=== PATIENT | female | born 1990 | race Caucasian/White ===

== ENCOUNTER → 2017-06-15 | Outpatient (CLI) | payer OTHER ==
[~2017-06-15] MED LIST: ADV1DS IH; ANXIETY MED; BIRTH CONTROL; FAMO20TA5 PO; ONDA8TAB13 PO; SCR1T PO; TRAM50TA2 PO
--- NOTE | 2017-06-15 09:04 | Diagnostic Imaging Report ---
PROCEDURE: US Gallbladder. TECHNIQUE: Multiple real-time grayscale images were obtained over the right upper quadrant in various projections. INDICATION: Right upper quadrant pain. FINDINGS: Liver parenchyma is homogeneous with normal echotexture. Gallbladder is clear. Common duct is not dilated. Pancreas is obscured by bowel gas. Right kidney appears normal. There is no ascites. IMPRESSION: Negative gallbladder sonogram. Dictated by: Dictated on workstation # [id number]
== END ==
LOC: RAD 07:51
PROVIDERS: ATTEND Surgery
DX: R10.11 Right upper quadrant pain (principal); R10.9 Unspecified abdominal pain; R19.7 Diarrhea, unspecified
CPT/HCPCS: 76705

== ENCOUNTER → 2017-08-03 | Outpatient (CLI) | payer OTHER ==
[~2017-08-03] MED LIST changes: +CATHETER FLUSH 10 ML SYR IV PRN
--- NOTE | 2017-08-03 13:27 | Diagnostic Imaging Report ---
EXAMINATION: HIDA with EF measurements Indication: Abdominal pain TECHNIQUE: After the intravenous administration of 5 mCi of Tc 99m Choletec, imaging over the abdomen was obtained. This was followed by administration of Ensure orally to stimulate intrinsic CCK secretion, followed by continued imaging with ejection fraction measured. FINDINGS: There is homogeneous uptake in the liver with prompt bile duct and gallbladder filling seen. Bowel activity is seen at 20 minutes. Based on further imaging and gallbladder area of interest activity measurements after the administration of Ensure, the gallbladder ejection fraction is estimated at 46%. IMPRESSION: 1. Normal hepatobiliary uptake and Gallbladder filling. 2. Borderline gallbladder ejection fraction. Correlate clinically. Dictated by: Dictated on workstation # [id number]
--- NOTE | 2017-08-04 12:05 | Physician Query-Final Dx ---
MARCI GARCIA 08/04/17 1205: Clinic Account Progress/Dx Physician Query: Please speficy the location of the patients abd pain thank you Date of Service Aug 03, 2017 at 09:50 GOLDIE SEN DO 08/10/17 0924: Clinic Account Progress/Dx DIAGNOSIS: Diagnosis epigastric abdominal pain MARCI GARCIA Aug 04, 2017 12:05 GOLDIE SEN DO Aug 10, 2017 09:24
== END ==
LOC: CARD 09:50
PROVIDERS: ATTEND Surgery
DX: R10.13 Epigastric pain (principal)
CPT/HCPCS: 78227

== ENCOUNTER → 2018-08-25 | Outpatient (CLI) | payer BC, OTHER ==
[~2018-08-25] MED LIST changes: -CATHETER FLUSH 10 ML SYR IV PRN
--- NOTE | 2018-08-25 17:14 | Diagnostic Imaging Report ---
PROCEDURE: MRI right joint lower extremity without contrast. TECHNIQUE: Multiplanar, multisequence [id number] MRI of the right lower extremity was accomplished. INDICATION: Injury a few months ago with anterior and medial right knee pain, radiating up to thigh. COMPARISON: None. FINDINGS: No acute fracture or dislocation is seen in the right knee. There is mild bone marrow edema at the superomedial aspect of the patella. Some sequences demonstrate significant motion artifact. No significant joint effusion is seen. There is an articular cartilage defect overlying the median ridge of the superior patella. The articular cartilage in the medial and lateral compartments demonstrates no full-thickness defect. No discrete tear is seen of the medial or lateral menisci. The anterior and posterior cruciate ligaments are intact. The medial collateral ligament and the lateral collateral ligamentous complex are intact. The extensor mechanism is intact. The medial and lateral retinacula are intact. There is mild anterior subcutaneous edema and mild edema in Hoffa's fat pad. IMPRESSION: 1. Articular cartilage defect overlying the superior median ridge of the right patella with underlying bone marrow edema. 2. No discrete tear is seen of the menisci or ligaments in the right knee. Dictated by: Dictated on workstation # [id number]
== END ==
LOC: RAD 16:08
PROVIDERS: ATTEND Orthopaedic Surgery
DX: M23.611 Other spontaneous disruption of anterior cruciate ligament of right knee (principal)
CPT/HCPCS: 73721

== ENCOUNTER 2018-10-01 16:35 | Observation (INO) | payer BC ==
[~2018-10-01] VITALS: Ht 167.6 cm; Wt 137.9 kg
[2018-10-01] MEDS ORDERED: ALPRAZolam 0.25 MG (XANAX) TAB PO PRN (16:45)
[2018-10-01] MEDS ORDERED: ACETAMINOPHEN 500 MG TAB (TYLENOL) PO PRN (16:45)
[2018-10-01] MEDS ORDERED: fentaNYL INJECTION 100 MCG/2 ML AMP IVP PRN (16:45)
[2018-10-01] MEDS ORDERED: HYDROcodone/APAP 5 MG/325 MG (LORTAB) TAB PO PRN (16:45)
[2018-10-01] MEDS ORDERED: CALCIUM CARBONATE 500 MG (TUMS) TAB.CHEW PO PRN (16:45)
[2018-10-01] MEDS ORDERED: DOCUSATE SODIUM 100 MG (COLACE) CAP PO PRN (16:45)
[2018-10-01] MEDS ORDERED: ONDANSETRON 4 MG/2 ML (SDV) Z0FRAN IVP PRN (16:45)
[2018-10-01] MEDS ORDERED: ZOLPIDEM 5 MG (AMBIEN) TAB PO PRN (16:45)
[2018-10-01] MEDS ORDERED: methylPREDNISolone 125 MG (Solu-MEDROL) VIAL IVP NR (17:15)
[2018-10-01] MEDS ORDERED: cefTRIAXone FOR IV USE 1,000 MG in NS (IVPB) 50 ML IV NR (17:15)
[2018-10-01 17:20] VITALS: BP 165/74
[2018-10-01] MEDS ORDERED: CATHETER FLUSH 10 ML SYR IV PRN (17:30)
--- NOTE | 2018-10-01 17:57 | Diagnostic Imaging Report ---
INDICATION: Wheezing. EXAMINATION: Two views of the chest were obtained. FINDINGS: Lung volumes are symmetric and normal. No airway thickening. No infiltrate, failure, effusion or pneumothorax. IMPRESSION: Normal two-view chest. Dictated by: Dictated on workstation # [id number]
[2018-10-01 18:13] LABS: BASOPHILS % (AUTO) 0 % (0-10); EOSINOPHILS # (AUTO) 0.1 10^3/uL (0.0-0.3); EOSINOPHILS % (AUTO) 1 % (0-10); HEMATOCRIT 41 % (35-52); HEMOGLOBIN 13.8 G/DL (11.5-16.0); LYMPHOCYTES % (AUTO) 38 % (12-44); MEAN CORPUSCULAR HEMOGLOBIN 31 PG (25-34); MEAN CORPUSCULAR HGB CONC 34 G/DL (32-36); MEAN CORPUSCULAR VOLUME 91 FL (80-99); MEAN PLATELET VOLUME 9.5 FL (7.4-10.4); MONOCYTES # (AUTO) 0.8 X 10^3 (0.0-1.0); MONOCYTES % (AUTO) 11 % (0-12); NEUTROPHILS # (AUTO) 3.9 X 10^3 (1.8-7.8); NEUTROPHILS % (AUTO) 50 % (42-75); PLATELET COUNT 292 10^3/uL (130-400); RED BLOOD COUNT 4.52 10^6/uL (4.35-5.85); WHITE BLOOD COUNT 7.7 10^3/uL (4.3-11.0)
[2018-10-01 18:31] LABS: ALANINE AMINOTRANSFERASE 17 U/L (0-55); ALKALINE PHOSPHATASE 51 U/L (40-136); BILIRUBIN,TOTAL 0.6 MG/DL (0.1-1.0); BUN/CREATININE RATIO 14; CALCIUM 9.2 MG/DL (8.5-10.1); CARBON DIOXIDE 21 MMOL/L (21-32); CHLORIDE 108 MMOL/L (98-107); CREATININE SERUM 0.71 MG/DL (0.60-1.30); GFR ESTIMATED > 60; GLUCOSE 92 MG/DL (70-105); POTASSIUM 3.9 MMOL/L (3.6-5.0); SODIUM 138 MMOL/L (135-145); TOTAL PROTEIN 7.2 GM/DL (6.4-8.2)
[2018-10-01] MEDS ORDERED: FLU QUADRIvalent (5+ YOA) 2018-2019 (AFLURIA) 0.5 ML IM ONE (19:00)
[2018-10-01 20:06] VITALS: BP 117/66
[2018-10-01] MEDS: RT-BUDESONIDE NEBS 0.5 MG/2ML (PULMICORT) AMP INH SCH (21:23)
[2018-10-01] MEDS: RT-ALBUTEROL SULF 2.5 MG/3 ML PRE-MIX VIAL INH SCH ×2 (21:32→23:31)
[2018-10-01] MEDS: methylPREDNISolone 40 MG/ML (Solu-MEDROL) VIAL IV SCH (22:27)
[2018-10-01] MEDS: CATHETER FLUSH 10 ML SYR IV SCH (22:27)
[2018-10-01 23:57] VITALS: BP 128/63
[2018-10-02] MEDS: RT-ALBUTEROL SULF 2.5 MG/3 ML PRE-MIX VIAL INH SCH ×3 (01:22→10:09)
[2018-10-02 04:10] VITALS: BP 131/60
[2018-10-02] MEDS: CATHETER FLUSH 10 ML SYR IV SCH ×2 (04:40→09:43)
[2018-10-02] MEDS: methylPREDNISolone 40 MG/ML (Solu-MEDROL) VIAL IV SCH ×2 (04:42→09:42)
[2018-10-02 06:22] LABS: BASOPHILS % (AUTO) 0 % (0-10); EOSINOPHILS % (AUTO) 0 % (0-10); HEMATOCRIT 43 % (35-52); HEMOGLOBIN 14.4 G/DL (11.5-16.0); LYMPHOCYTES # (AUTO) 0.8 X 10^3 (1.0-4.0); LYMPHOCYTES % (AUTO) 20 % (12-44); MEAN CORPUSCULAR HEMOGLOBIN 30 PG (25-34); MEAN CORPUSCULAR HGB CONC 33 G/DL (32-36); MEAN CORPUSCULAR VOLUME 90 FL (80-99); MEAN PLATELET VOLUME 9.9 FL (7.4-10.4); MONOCYTES % (AUTO) 1 % (0-12); NEUTROPHILS # (AUTO) 3.2 X 10^3 (1.8-7.8); NEUTROPHILS % (AUTO) 78 % (42-75); PLATELET COUNT 297 10^3/uL (130-400); RED CELL DISTRIBUTION WIDTH 12.7 % (10.0-14.5); WHITE BLOOD COUNT 4.1 10^3/uL (4.3-11.0)
[2018-10-02 06:41] LABS: ALANINE AMINOTRANSFERASE 17 U/L (0-55); ALBUMIN 4.1 GM/DL (3.2-4.5); ALKALINE PHOSPHATASE 55 U/L (40-136); BILIRUBIN,TOTAL 0.5 MG/DL (0.1-1.0); BUN/CREATININE RATIO 11; CALCIUM 9.1 MG/DL (8.5-10.1); CARBON DIOXIDE 19 MMOL/L (21-32); CHLORIDE 109 MMOL/L (98-107); GFR ESTIMATED > 60; GLUCOSE 169 MG/DL (70-105); POTASSIUM 4.1 MMOL/L (3.6-5.0); SODIUM 140 MMOL/L (135-145); TOTAL PROTEIN 7.4 GM/DL (6.4-8.2)
[2018-10-02] MEDS: RT-BUDESONIDE NEBS 0.5 MG/2ML (PULMICORT) AMP INH SCH (07:31)
[2018-10-02 08:37] VITALS: BP 125/59
[2018-10-02] MEDS ORDERED: cefTRIAXone FOR IV USE 1,000 MG in NS (IVPB) 50 ML IV SCH (09:00)
[2018-10-02] MEDS ORDERED: PRED10TA22 PO (12:14)
[2018-10-02] MEDS ORDERED: ALBU2.5V4 INH (12:14)
[2018-10-02] MEDS ORDERED: CEFD300C3 PO (12:14)
[2018-10-02] MEDS ORDERED: ALPR0.254 PO (12:17)
[2018-10-02] MEDS ORDERED: CITA20TA9 PO (12:17)
--- NOTE | 2018-10-02 12:20 | Short Stay Summary-Hospitalist ---
History of Present Illness HPI/Chief Complaint CC: Status asthmaticus acute HPI: This is a 28-year-old white female of mine with past medical history of asthma maintained on Advair once daily who presents to my Thursday afternoon clinic with severe wheezing and shortness of breath. She was just treated for bronchitis and wheezing one month ago at my office and placed on empiric antibiotics and prednisone of which she improved a little bit but had worsening issue for the past 2 weeks. She was found to have findings consistent with status asthmaticus in need of IV steroids and further workup. Chest x-ray did not reveal any infiltrate especially considering she has had pneumonia in the past. Labs remained normal when we checked him on admission and discharge and she was willing to be discharged with close follow-up with me at the clinic. Source: patient Exam Limitations: no limitations Date Seen 10/02/18 Time Seen by a Provider: 11:00 Attending Physician Darcie Zazueta DO PCP Darcie Zazueta DO Referring Physician Date of Admission Oct 01, 2018 at 17:16 Home Medications & Allergies Home Medications Reviewed patient Home Medication Reconciliation performed by pharmacy medication reconciliations ordnance technician and/or nursing. Patients Allergies have been reviewed. 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[employer]) Alcohol Use: Occasionally Uses Recreational Drug Use: No Smoking Status: Never a Smoker Physical Abuse Screen: No Sexual Abuse: No Recent Foreign Travel: No Contact w/other who traveled: No Recent Hopitalizations: No Recent Infectious Disease Expo: No Seasonal Allergies Seasonal Allergies: Yes Past Medical History Respiratory: Asthma Reproductive: No Gastrointestinal: Irritable Bowel Psychosocial: Anxiety History of Blood Disorders: No Adverse Reaction to Blood Ugalde: No Review of Systems Constitutional: see HPI, weakness EENTM: no symptoms reported Respiratory: cough, dyspnea on exertion, short of breath, wheezing Cardiovascular: no symptoms reported Gastrointestinal: no symptoms reported Genitourinary: no symptoms reported Musculoskeletal: no symptoms reported Skin: no symptoms reported Psychiatric/Neurological: No Symptoms Reported All Other Systems Reviewed Negative Unless Noted: Yes Physical Exam Physical Exam Vital Signs Vital Signs - First Documented 10/01/18 17:20 Temp 99.8 Pulse 80 Resp 20 B/P (MAP) 165/74 (104) Pulse Ox 99 O2 Delivery Room Air Capillary Refill : Height, Weight, BMI Height: 5'6.00" Weight: 304lbs. 0.0oz. 137.413383oc; 48.1 BMI Method:Stated General Appearance: WD/WN, Mild Distress, Obese Eyes: Bilateral Eye Normal Inspection, Bilateral Eye PERRL HEENT: PERRL/EOMI, Normal ENT Inspection, Pharynx Normal Neck: Full Range of Motion, Normal Inspection, Non Tender, Supple, Carotid Bruit Respiratory: Chest Non Tender, Accessory Muscle Use, Crackles, Decreased Breath Sounds, Respiratory Distress, Wheezing Cardiovascular: Regular Rate, Rhythm, No Edema, No Gallop, No JVD, No Murmur, Normal Peripheral Pulses Gastrointestinal: Normal Bowel Sounds, No Organomegaly, No Pulsatile Mass, Non Tender, Soft Back: Normal Inspection, No CVA Tenderness, No Vertebral Tenderness Extremity: Normal Capillary Refill, Normal Inspection, Normal Range of Motion, Non Tender, No Calf Tenderness, No Pedal Edema Neurologic/Psychiatric: Alert, Oriented x3, No Motor/Sensory Deficits, Normal Mood/Affect Skin: Normal Color, Warm/Dry Lymphatic: No Adenopathy Results Results/Procedures Labs Laboratory Tests 10/01/18 17:58 10/02/18 05:30 Patient resulted labs reviewed. Short Stay Diagnosis Discharge Diagnosis-Short Stay Admission Diagnosis Assessment: Status asthmaticus Recent bronchitis and asthma exacerbation 4 weeks ago Anxiety Depression Final Discharge Diagnosis Assessment: Status asthmaticus Recent bronchitis and asthma exacerbation 4 weeks ago Anxiety Depression Conclusion Plan Discharge home on antibiotics and steroids and albuterol breathing treatments with nebulizer machine I will encourage her to get a sleep study since she appears to have risk and that could exacerbation her asthma Diagnosis/Problems Diagnosis/Problems (1) Asthmaticus, status Status: Acute Qualifiers: Qualified Codes: J45.42 - Moderate persistent asthma with status asthmaticus (2) Bronchitis Status: Acute Clinical Quality Measures DVT/VTE Risk/Contraindication: Risk Factor Score Per Nursin RFS Level Per Nursing on Admit: 1=Low/No VTE PPX DARCIE ZAZUETA DO Oct 02, 2018 12:20
[2018-10-02] MEDS ORDERED: ALPRAZolam 0.25 MG (XANAX) TAB PO SCH (12:30)
[2018-10-02] MEDS ORDERED: RT-ADVAIR HFA 115/21 MCG PER PUFF IH SCH (12:37)
[2018-10-02 14:00] VITALS: BP 125/59
== END 2018-10-02 12:19 | disposition home or self-care (01) ==
LOC: 4TH 17:10 → UNDOADMOB 17:16 → UNDODISOB 10-02 14:00
PROVIDERS: ADMIT Internal Medicine; ATTEND Internal Medicine
DX: J45.42 Moderate persistent asthma with status asthmaticus (principal); J20.9 Acute bronchitis, unspecified; F41.9 Anxiety disorder, unspecified; F32.9 Major depressive disorder, single episode, unspecified
CPT/HCPCS: 36415; 71046; 80053; 83605; 85025; 87040; 94640; 99211; G0378

== ENCOUNTER 2018-12-26 11:54 | Emergency (ER) | payer BC ==
[~2018-12-26] VITALS: Ht 165.1 cm; Wt 131.5 kg
[~2018-12-26 11:54] MED LIST changes: +ALBU2.5V4 INH; +ALPR0.254 PO; +CEFD300C3 PO; +CITA20TA9 PO; +PRED10TA22 PO
--- OUTSIDE RECORDS SUMMARY | 2018-12-26 11:59 | XMS REPORT | Continuity of Care Document ---
Author Author [facility] Organization [facility] Address Unknown Phone Unavailable Allergies Active Description Code Type Severity Reaction Onset Reported/Identified Relationship to Patient Clinical Status Yes No Known Drug Allergies [id number] Drug Allergy Unknown N/A 11/15/2012 Medications There is no data. Problems Date Dx Coded Attending Type Code Diagnosis Diagnosed By 11/15/2012 Ot 850.0 CONCUSSION W/ O COMA 11/15/2012 Ot 959.01 HEAD INJURY , NOS 11/15/2012 Ot E000.8 OTHER EXTERNAL CAUSE STATUS 11/15/2012 Ot E849.0 ACCIDENT IN HOME 11/15/2012 Ot E880.9 FALL ON STAIR/STEP NEC 06/02/2014 INDU CONNOR Ot 535.50 UNSP GASTRITIS GASTRODUODENITIS W/O ME 06/02/2014 INDU CONNOR Ot 787.02 NAUSEA ALONE 06/02/2014 INDU CONNOR Ot 789.01 ABDOMINAL PAIN, RIGHT UPPER QUADRANT 06/15/2017 LISSETTE FELIPE CARLENE Ot 575.9 DIS OF GALLBLADDER NOS 06/15/2017 LISSETTE FELIPE, CARLENE Ot 789.00 ABDOMINAL PAIN, UNSPECIFIED SITE 06/15/2017 INDU CONNOR Ot 787.02 NAUSEA ALONE 06/15/2017 INDU CONNOR Ot 789.01 ABDOMINAL PAIN, RIGHT UPPER QUADRANT 06/15/2017 GOLDIE SEN DO Ot V72.84 EXAM PRE-OPERATIVE NOS 06/15/2017 SEN DOGOLDIE D Ot R10.11 RIGHT UPPER QUADRANT PAIN 06/15/2017 BENITO SEN DOTT D Ot R10.9 UNSPECIFIED ABDOMINAL PAIN 06/15/2017 SEN DOBENITOTT D Ot R19.7 DIARRHEA, UNSPECIFIED 06/18/2017 MCLAUGHLIN DO, CARLENE Ot 575.9 DIS OF GALLBLADDER NOS 06/18/2017 MCL[place]IN DO, CARLENE Ot 789.00 ABDOMINAL PAIN, UNSPECIFIED SITE 06/18/2017 INDU CONNOR Ot 787.02 NAUSEA ALONE 06/18/2017 INDU CONNOR Ot 789.01 ABDOMINAL PAIN, RIGHT UPPER QUADRANT 06/18/2017 SEN DO, GOLDIE D Ot V72.84 EXAM PRE-OPERATIVE NOS 06/21/2017 SEN DO, GOLDIE D Ot R10.11 RIGHT UPPER QUADRANT PAIN 06/21/2017 SEN DO, GOLDIE D Ot R10.9 UNSPECIFIED ABDOMINAL PAIN 06/21/2017 SEN DO, GOLDIE D Ot R19.7 DIARRHEA, UNSPECIFIED 07/13/2017 SEN DO, GOLDIE D Ot R10.11 RIGHT UPPER QUADRANT PAIN 07/13/2017 SEN DO, GOLDIE D Ot R10.9 UNSPECIFIED ABDOMINAL PAIN 07/13/2017 SEN DO, GOLDIE D Ot R19.7 DIARRHEA, UNSPECIFIED 08/03/2017 MCLAUGHLIN DO, CARLENE Ot 575.9 DIS OF GALLBLADDER NOS 08/03/2017 MCL[place]IN DO, CARLENE Ot 789.00 ABDOMINAL PAIN, UNSPECIFIED SITE 08/03/2017 INDU CONNOR Ot 787.02 NAUSEA ALONE 08/03/2017 INDU CONNOR Ot 789.01 ABDOMINAL PAIN, RIGHT UPPER QUADRANT 08/03/2017 SEN DO, GOLDIE D Ot V72.84 EXAM PRE-OPERATIVE NOS 09/10/2017 SEN DO, GOLDIE D Ot R10.13 EPIGASTRIC PAIN 08/24/2018 MCLAUGHLIN DO, CARLENE Ot 575.9 DIS OF GALLBLADDER NOS 08/24/2018 MCLAUGHLIN DO, CARLENE Ot 789.00 ABDOMINAL PAIN, UNSPECIFIED SITE 08/24/2018 INDU CONNOR Ot 787.02 NAUSEA ALONE 08/24/2018 INDU CONNOR Ot 789.01 ABDOMINAL PAIN, RIGHT UPPER QUADRANT 08/24/2018 SEN DO, GOLDIE D Ot V72.84 EXAM PRE-OPERATIVE NOS 08/24/2018 SEN DO, GOLDIE D Ot R10.13 EPIGASTRIC PAIN 08/25/2018 MCLAUGHLIN DO, CARLENE Ot 575.9 DIS OF GALLBLADDER NOS 08/25/2018 MCLAUGHLIN DO, CARLENE Ot 789.00 ABDOMINAL PAIN, UNSPECIFIED SITE 08/25/2018 DIMITRY PA, INDU L Ot 787.02 NAUSEA ALONE 08/25/2018 DIMITRY VARELA INDU Munir Ot 789.01 ABDOMINAL PAIN, RIGHT UPPER QUADRANT 08/25/2018 GOLDIE SEN DO Ot V72.84 EXAM PRE-OPERATIVE NOS 08/25/2018 GOLDIE SEN DO Ot R10.13 EPIGASTRIC PAIN 08/30/2018 SAMEER IFELDS, SOFIE Ruiz Ot M23.611 OTH SPON DISRUPT OF ANTERIOR CRUCIATE LI 09/03/2018 SAMEER FIELDS, SOFIE Ruiz Ot M23.611 OTH SPON DISRUPT OF ANTERIOR CRUCIATE LI 10/02/2018 MCLAUGHLIN DO, CARLENE Ot F32.9 MAJOR DEPRESSIVE DISORDER, SINGLE EPISOD 10/02/2018 MCLAUGHLIN DO, CARLENE Ot F41.9 ANXIETY DISORDER, UNSPECIFIED 10/02/2018 MCLAUGHLIN DO CARLENE Ot J20.9 ACUTE BRONCHITIS, UNSPECIFIED 10/02/2018 MCLAUGHLIN DO, CARLENE Ot J45.42 MODERATE PERSISTENT ASTHMA WITH STATUS A Procedures There is no data. Results Test Result Range CULTURE, GENITAL - 04/12/18 14:37 CULTURE, GENITAL SEE NOTE NRG Complete blood count (CBC) with automated white blood cell (WBC) differential - 10/01/18 17:58 Blood leukocytes automated count (number/volume) 7.7 10*3/uL 4.3-11.0 Blood erythrocytes automated count (number/volume) 4.52 10*6/uL 4.35-5.85 Venous blood hemoglobin measurement (mass/volume) 13.8 g/dL 11.5-16.0 Blood hematocrit (volume fraction) 41 % 35-52 Automated erythrocyte mean corpuscular volume 91 [foz_us] 80-99 Automated erythrocyte mean corpuscular hemoglobin (mass per erythrocyte) 31 pg 25-34 Automated erythrocyte mean corpuscular hemoglobin concentration measurement ( mass/volume) 34 g/dL 32-36 Automated erythrocyte distribution width ratio 13.0 % 10.0-14.5 Automated blood platelet count (count/volume) 292 10*3/uL 130-400 Automated blood platelet mean volume measurement 9.5 [foz_us] 7.4-10.4 Automated blood neutrophils/100 leukocytes 50 % 42-75 Automated blood lymphocytes/100 leukocytes 38 % 12-44 Blood monocytes/100 leukocytes 11 % 0-12 Automated blood eosinophils/100 leukocytes 1 % 0-10 Automated blood basophils/100 leukocytes 0 % 0-10 Blood neutrophils automated count (number/volume) 3.9 10*3 1.8-7.8 Blood lymphocytes automated count (number/volume) 3.0 10*3 1.0-4.0 Blood monocytes automated count (number/volume) 0.8 10*3 0.0-1.0 Automated eosinophil count 0.1 10*3/uL 0.0-0.3 Automated blood basophil count (count/volume) 0.0 10*3/uL 0.0-0.1 Blood lactic acid measurement (moles/volume) - 10/01/18 17:58 Blood lactic acid measurement (moles/volume) 0.77 mmol/L 0.50-2.00 Comprehensive metabolic panel - 10/01/18 17:58 Serum or plasma sodium measurement (moles/volume) 138 mmol/L 135-145 Serum or plasma potassium measurement (moles/volume) 3.9 mmol/L 3.6-5.0 Serum or plasma chloride measurement (moles/volume) 108 mmol/L 98-107 Carbon dioxide 21 mmol/L 21-32 Serum or plasma anion gap determination (moles/volume) 9 mmol/L 5-14 Serum or plasma urea nitrogen measurement (mass/volume) 10 mg/dL 7-18 Serum or plasma creatinine measurement (mass/volume) 0.71 mg/dL 0.60-1.30 Serum or plasma urea nitrogen/creatinine mass ratio 14 NRG Serum or plasma creatinine measurement with calculation of estimated glomerular filtration rate > NRG Serum or plasma glucose measurement (mass/volume) 92 mg/dL 70-105 Serum or plasma calcium measurement (mass/volume) 9.2 mg/dL 8.5-10.1 Serum or plasma total bilirubin measurement (mass/volume) 0.6 mg/dL 0.1-1.0 Serum or plasma alkaline phosphatase measurement (enzymatic activity/volume) 51 U/L 40-136 Serum or plasma aspartate aminotransferase measurement (enzymatic activity/ volume) 14 U/L 5-34 Serum or plasma alanine aminotransferase measurement (enzymatic activity/volume ) 17 U/L 0-55 Serum or plasma protein measurement (mass/volume) 7.2 g/dL 6.4-8.2 Serum or plasma albumin measurement (mass/volume) 4.0 g/dL 3.2-4.5 CALCIUM CORRECTED 9.2 mg/dL 8.5-10.1 Bacterial blood culture - 10/01/18 17:58 Bacterial blood culture NG NRG Bacterial blood culture - 10/01/18 18:05 Bacterial blood culture NG NR Complete blood count (CBC) with automated white blood cell (WBC) differential - 10/02/18 05:30 Blood leukocytes automated count (number/volume) 4.1 10*3/uL 4.3-11.0 Blood erythrocytes automated count (number/volume) 4.80 10*6/uL 4.35-5.85 Venous blood hemoglobin measurement (mass/volume) 14.4 g/dL 11.5-16.0 Blood hematocrit (volume fraction) 43 % 35-52 Automated erythrocyte mean corpuscular volume 90 [foz_us] 80-99 Automated erythrocyte mean corpuscular hemoglobin (mass per erythrocyte) 30 pg 25-34 Automated erythrocyte mean corpuscular hemoglobin concentration measurement ( mass/volume) 33 g/dL 32-36 Automated erythrocyte distribution width ratio 12.7 % 10.0-14.5 Automated blood platelet count (count/volume) 297 10*3/uL 130-400 Automated blood platelet mean volume measurement 9.9 [foz_us] 7.4-10.4 Automated blood neutrophils/100 leukocytes 78 % 42-75 Automated blood lymphocytes/100 leukocytes 20 % 12-44 Blood monocytes/100 leukocytes 1 % 0-12 Automated blood eosinophils/100 leukocytes 0 % 0-10 Automated blood basophils/100 leukocytes 0 % 0-10 Blood neutrophils automated count (number/volume) 3.2 10*3 1.8-7.8 Blood lymphocytes automated count (number/volume) 0.8 10*3 1.0-4.0 Blood monocytes automated count (number/volume) 0.0 10*3 0.0-1.0 Automated eosinophil count 0.0 10*3/uL 0.0-0.3 Automated blood basophil count (count/volume) 0.0 10*3/uL 0.0-0.1 Comprehensive metabolic panel - 10/02/18 05:30 Serum or plasma sodium measurement (moles/volume) 140 mmol/L 135-145 Serum or plasma potassium measurement (moles/volume) 4.1 mmol/L 3.6-5.0 Serum or plasma chloride measurement (moles/volume) 109 mmol/L 98-107 Carbon dioxide 19 mmol/L 21-32 Serum or plasma anion gap determination (moles/volume) 12 mmol/L 5-14 Serum or plasma urea nitrogen measurement (mass/volume) 8 mg/dL 7-18 Serum or plasma creatinine measurement (mass/volume) 0.70 mg/dL 0.60-1.30 Serum or plasma urea nitrogen/creatinine mass ratio 11 NRG Serum or plasma creatinine measurement with calculation of estimated glomerular filtration rate > NRG Serum or plasma glucose measurement (mass/volume) 169 mg/dL 70-105 Serum or plasma calcium measurement (mass/volume) 9.1 mg/dL 8.5-10.1 Serum or plasma total bilirubin measurement (mass/volume) 0.5 mg/dL 0.1-1.0 Serum or plasma alkaline phosphatase measurement (enzymatic activity/volume) 55 U/L 40-136 Serum or plasma aspartate aminotransferase measurement (enzymatic activity/ volume) 14 U/L 5-34 Serum or plasma alanine aminotransferase measurement (enzymatic activity/volume ) 17 U/L 0-55 Serum or plasma protein measurement (mass/volume) 7.4 g/dL 6.4-8.2 Serum or plasma albumin measurement (mass/volume) 4.1 g/dL 3.2-4.5 CALCIUM CORRECTED 9.0 mg/dL 8.5-10.1 Encounters ACCT No. Visit Date/Time Discharge Status Pt. Type Provider Facility Loc./Unit Complaint [id number] 10/01/2018 17:16:00 10/02/2018 14:00:00 DIS Inpatient LISSETTE FELIPE CARLENE [facility] 4TH WHEEZING [id number] 08/25/2018 16:08:00 08/25/2018 23:59:59 CLS Outpatient SOFIE ESTRELLA MD [facility] RAD OTHER SPONTANEOUS DISTRUPTION OF ACL [id number] 08/03/2017 09:50:00 08/03/2017 23:59:59 CLS Outpatient GOLDIE SEN DO [facility] CARD ABD PAIN R10.9 [id number] 06/15/2017 07:51:00 06/15/2017 23:59:59 CLS Outpatient GOLDIE SEN DO [facility] RAD ABD PAIN R10.9 [id number] 06/15/2014 08:21:00 06/15/2014 23:59:59 CLS Outpatient SEN DO GOLDIE Mancini [facility] PREOP RIGHT UPPER QUADRANT ABDOMINAL PAIN [id number] 06/06/2014 09:59:00 06/06/2014 23:59:59 CLS Outpatient INDU CONNOR [facility] CARD NAUSEA [id number] 06/02/2014 17:22:00 06/02/2014 19:07:00 DIS Emergency INDU CONNOR [facility] ER FEVER, R SIDE PAIN [id number] 04/26/2014 06:57:00 04/26/2014 23:59:59 CLS Outpatient MCLAUGHLIN CARLOZ FELIPEI [facility] RAD ABD PAIN,GB PAIN [id number] 06/15/2017 07:55:00 Document Registration [id number] 06/15/2017 07:55:00 Document Registration [id number] 11/15/2012 17:00:00 Document Registration [id number] 04/12/2018 09:20:00 04/12/2018 23:59:59 CLS Outpatient MELY JUNIOR DEONNA [facility] [id number] 04/12/2018 09:20:00 Document Registration
[2018-12-26] MEDS ORDERED: diphenhydrAMINE 50 MG/ML INJ (BENADRYL) IV STA (13:01)
[2018-12-26] MEDS ORDERED: NS IV 1000 ML 1,000 ML IV SCH (13:01)
[2018-12-26] MEDS ORDERED: KETOROLAC 30 MG/ML VIAL IVP STA (13:01)
[2018-12-26] MEDS ORDERED: PROCHLORPERAZINE 10 MG/2ML INJ (COMPAZINE) IV ONE (13:15)
--- NOTE | 2018-12-26 13:19 | ED Headache ---
General Chief Complaint: Head/Cervical Problems Stated Complaint: HEAD AND NECK PAIN Nursing Triage Note: PT PRESENTS TO ER WITH COMPLAINT OF HEAD AND NECK PAIN FOR THE LAST WEEK. PT STATES SHE WAS SEEN LAST WEEK AT AND DIAGNOSED WITH WALKING PNEUMONIA. Nursing Sepsis Screen: No Definite Risk History of Present Illness Date Seen by Provider: Dec 26, 2018 Time Seen by Provider: 12:40 Initial Comments 28-year-old female reports cough and sinus congestion for the last 2 weeks. She's been treated for Mycoplasma pneumonia with doxycycline for one week. She was taking Sudafed but hasn't for the last 48 hours. She began having a headache yesterday and is continued to have the headache and neck pain. She has not been tested for influenza and did not receive an influenza vaccine this year. She was required to travel for work this week and began feeling worse. She took Tylenol PM last night for the headache with no improvement and reports difficulty sleeping. She has mild nausea and no vomiting. She has a history of asthma, it is well-controlled and she is not using her rescue inhaler. She reports the respiratory and sinus congestion are improving. Timing/Duration: 1 week Severity/Quality: moderate, pressure Location: frontal, occipital Prior Headaches/Recent Trauma: no recent headache/trauma, occasional headaches Modifying Factors: improves with rest Allergies and Home Medications Allergies Coded Allergies: No Known Drug Allergies (Unverified , 11/15/12) Home Medications Albuterol Sulfate 2.5 Mg/3 Ml Vial.neb, 2.5 MG INH RTQ4HR Prescribed by: CARLENE MCLAUGHLIN on 10/02/18 1214 Alprazolam 0.25 Mg Tablet, 0.25 MG PO Q8H, (Reported) Cefdinir 300 Mg Capsule, 300 MG PO BID Prescribed by: CARLENE MCLAUGHLIN on 10/02/18 1214 Citalopram Hydrobromide 20 Mg Tablet, 20 MG PO DAILY, (Reported) Fluticasone/Salmeterol 250 Mcg/50 Mcg Inh, 1 SPRAY IH Q12H, (Reported) Ondansetron 4 Mg Tab.rapdis, 8 MG PO Q6H PRN for NAUSEA/VOMITING-1ST LINE Prescribed by: ESTELLE CISNEROS on 12/26/18 1436 Prednisone 10 Mg Tab.ds.pk, 10 MG PO DAILY Take 6 tabs(60mg)daily,decrease by 1 tab(10MG)daily. Prescribed by: CARLENE MCLAUGHLIN on 10/02/18 1214 Patient Home Medication List Home Medication List Reviewed: Yes Review of Systems Review of Systems Constitutional: no symptoms reported, see HPI, malaise Eyes: See HPI, Blurred Vision; Denies Photophobia, Denies Vision Changes; Glasses Respiratory: see HPI Cardiovascular: no symptoms reported, see HPI Gastrointestinal: see HPI, nausea Genitourinary: no symptoms reported, see HPI : No Musculoskeletal: see HPI, neck pain Psychiatric/Neurological: See HPI, Headache Past Snlsrvw-Hdzrzm-Nqrozt Hx Past Med/Social Hx: Reviewed Nursing Past Med/Soc Hx Patient Social History Alcohol Use: Occasionally Uses Recreational Drug Use: No Smoking Status: Never a Smoker Recent Foreign Travel: No Contact w/Someone Who Travel: No Recent Infectious Disease Expo: No Recent Hopitalizations: No Immunizations Up To Date Tetanus Booster (TDap): Unknown PED Vaccines UTD: Yes Seasonal Allergies Seasonal Allergies: Yes Past Medical History Surgeries: Yes Orthopedic Respiratory: Yes Asthma Cardiac: No Neurological: No Reproductive Disorders: No Genitourinary: No Gastrointestinal: No Irritable Bowel Musculoskeletal: No Endocrine: No HEENT: No Cancer: No Psychosocial: No Anxiety Integumentary: No Blood Disorders: No Adverse Reaction/Blood Tranf: No Physical Exam Vital Signs Vital Signs - First Documented 12/26/18 12:37 Temp 96.8 Pulse 76 Resp 20 B/P (MAP) 161/91 (114) Pulse Ox 99 O2 Delivery Room Air Capillary Refill : Less Than 3 Seconds Height, Weight, BMI Height: 5'5.00" Weight: 290lbs. 0.0oz. [id number]; 48.1 BMI Method:Stated General Appearance: WD/WN, no apparent distress HEENT: PERRL/EOMI, normal ENT inspection, TMs normal, pharynx normal; No pharyngeal erythema, No tonsillar exudate; other (no sinus tenderness) Neck: full range of motion, supple; No lymphadenopathy (R), No lymphadenopathy (L); tender lateral, tender midline Cardiovascular: normal peripheral pulses Respiratory: chest non-tender, lungs clear, normal breath sounds, no respiratory distress Gastrointestinal: normal bowel sounds, non tender, soft Extremities: normal range of motion, non-tender, normal inspection, normal capillary refill Psychiatric: alert, oriented x 3 Crainal Nerves: normal hearing, normal speech, PERRL Coordination/Gait: normal finger to nose, normal gait Motor/Sensory: no motor deficit, no sensory deficit Skin: normal color, warm/dry Lymphatic: no adenopathy Progress/Results/Core Measures Results/Orders Lab Results Laboratory Tests Test 12/26/18 13:11 Range/Units White Blood Count 7.6 4.3-11.0 10^3/uL Red Blood Count 4.70 4.35-5.85 10^6/uL Hemoglobin 14.0 11.5-16.0 G/DL Hematocrit 42 35-52 % Mean Corpuscular Volume 90 80-99 FL Mean Corpuscular Hemoglobin 30 25-34 PG Mean Corpuscular Hemoglobin Concent 33 32-36 G/DL Red Cell Distribution Width 12.6 10.0-14.5 % Platelet Count 295 130-400 10^3/uL Mean Platelet Volume 9.2 7.4-10.4 FL Neutrophils (%) (Auto) 58 42-75 % Lymphocytes (%) (Auto) 33 12-44 % Monocytes (%) (Auto) 8 0-12 % Eosinophils (%) (Auto) 1 0-10 % Basophils (%) (Auto) 0 0-10 % Neutrophils # (Auto) 4.4 1.8-7.8 X 10^3 Lymphocytes # (Auto) 2.5 1.0-4.0 X 10^3 Monocytes # (Auto) 0.6 0.0-1.0 X 10^3 Eosinophils # (Auto) 0.1 0.0-0.3 10^3/uL Basophils # (Auto) 0.0 0.0-0.1 10^3/uL Sodium Level 138 135-145 MMOL/L Potassium Level 3.9 3.6-5.0 MMOL/L Chloride Level 109 H 98-107 MMOL/L Carbon Dioxide Level 19 L 21-32 MMOL/L Anion Gap 10 5-14 MMOL/L Blood Urea Nitrogen 10 7-18 MG/DL Creatinine 0.73 0.60-1.30 MG/DL Estimat Glomerular Filtration Rate > 60 BUN/Creatinine Ratio 14 Glucose Level 96 70-105 MG/DL Calcium Level 8.9 8.5-10.1 MG/DL Corrected Calcium 9.1 8.5-10.1 MG/DL Total Bilirubin 0.7 0.1-1.0 MG/DL Aspartate Amino Transf (AST/SGOT) 23 5-34 U/L Alanine Aminotransferase (ALT/SGPT) 29 0-55 U/L Alkaline Phosphatase 48 40-136 U/L Total Protein 6.8 6.4-8.2 GM/DL Albumin 3.8 3.2-4.5 GM/DL My Orders Orders - ESTELLE CISNEROS Saline Lock/Iv-Start (12/26/18 13:01) Ns Iv 1000 Ml (Sodium Chloride 0.9%) (12/26/18 13:01) Ketorolac Injection (Toradol Injection) (12/26/18 13:01) Diphenhydramine Injection (Benadryl Inje (12/26/18 13:01) Prochlorperazine Injection (Compazine In (12/26/18 13:15) Cbc With Automated Diff (12/26/18 13:03) Comprehensive Metabolic Panel (12/26/18 13:03) Medications Given in ED Current Medications Medications Dose Ordered Sig/Mart Route Start Time Stop Time Status Last Admin Dose Admin Prochlorperazine Edisylate 10 mg ONCE ONCE IV 12/26/18 13:15 12/26/18 13:16 DC 12/26/18 13:26 10 MG Vital Signs/I&O 12/26/18 12/26/18 12:37 14:54 Temp 96.8 96.8 Pulse 76 72 Resp 20 20 B/P (MAP) 161/91 (114) 144/89 (107) Pulse Ox 99 99 O2 Delivery Room Air Blood Pressure Mean: 114 Progress Progress Note : Time: 12:40 Progress Note Patient seen and evaluated, will do 1 L normal saline IV, Compazine 10 mg IV for nausea, Toradol 30 mg IV for headache, and Benadryl 50 mg IV. 1315 labs essentially normal, patient resting with lights off in room. She does report some improvement in her symptoms. 1420 patient reports nausea has improved, she was able to sleep for a short amount of time, the headache is improving. Discharge instructions and return precautions reviewed with the patient. Departure Impression Primary Impression: Headache Qualified Codes: G44.201 - Tension-type headache, unspecified, intractable Additional Impressions: Acute neck pain Acute upper respiratory infection Disposition: HOME, SELF-CARE Condition: Improved Departure-Patient Inst. Decision time for Depature: 14:20 Referrals: CARLENE MCLAUGHLIN DO (PCP/Family) Primary Care Physician Patient Instructions: Migraine Headache (DC) Add. Discharge Instructions: Continue to take the doxycycline as prescribed. Use Excedrin migraine every 6-8 hours as needed for headache. Increase water intake, one bottle every 2 hours while awake. Increase rest. You may take Zofran every 6-8 hours as needed for nausea and vomiting. Use Afrin nasal spray 2 sprays in each nostril every 6 hours for 3 days then discontinue. Take your Sudafed 1 tablet every 8 hours. You may take Tylenol PM at bedtime or Benadryl 50 mg. Obtain a flu shot. Return to emergency department for migraine that does not improve, visual changes, vomiting, fever greater than 101 not relieved by Tylenol and ibuprofen , or new concerns. All discharge instructions reviewed with patient and/or family. Voiced understanding. Scripts Ondansetron (Ondansetron Odt) 4 Mg Tab.rapdis 8 MG PO Q6H PRN for NAUSEA/VOMITING-1ST LINE, #12 TAB 0 Refills Prov: ESTELLE CISNEROS 12/26/18 Copy Copies To 1: CARLENE MCLAUGHLIN AMY ARNP Dec 26, 2018 13:19
[2018-12-26 13:20] LABS: BASOPHILS % (AUTO) 0 % (0-10); EOSINOPHILS # (AUTO) 0.1 10^3/uL (0.0-0.3); EOSINOPHILS % (AUTO) 1 % (0-10); HEMATOCRIT 42 % (35-52); LYMPHOCYTES # (AUTO) 2.5 X 10^3 (1.0-4.0); LYMPHOCYTES % (AUTO) 33 % (12-44); MEAN CORPUSCULAR HEMOGLOBIN 30 PG (25-34); MEAN CORPUSCULAR HGB CONC 33 G/DL (32-36); MEAN CORPUSCULAR VOLUME 90 FL (80-99); MEAN PLATELET VOLUME 9.2 FL (7.4-10.4); MONOCYTES # (AUTO) 0.6 X 10^3 (0.0-1.0); MONOCYTES % (AUTO) 8 % (0-12); NEUTROPHILS # (AUTO) 4.4 X 10^3 (1.8-7.8); NEUTROPHILS % (AUTO) 58 % (42-75); PLATELET COUNT 295 10^3/uL (130-400); RED CELL DISTRIBUTION WIDTH 12.6 % (10.0-14.5); WHITE BLOOD COUNT 7.6 10^3/uL (4.3-11.0)
[2018-12-26 13:39] LABS: ALANINE AMINOTRANSFERASE 29 U/L (0-55); ALBUMIN 3.8 GM/DL (3.2-4.5); ALKALINE PHOSPHATASE 48 U/L (40-136); BILIRUBIN,TOTAL 0.7 MG/DL (0.1-1.0); BUN/CREATININE RATIO 14; CALCIUM 8.9 MG/DL (8.5-10.1); CARBON DIOXIDE 19 MMOL/L (21-32); CHLORIDE 109 MMOL/L (98-107); CREATININE SERUM 0.73 MG/DL (0.60-1.30); GFR ESTIMATED > 60; GLUCOSE 96 MG/DL (70-105); POTASSIUM 3.9 MMOL/L (3.6-5.0); SODIUM 138 MMOL/L (135-145); TOTAL PROTEIN 6.8 GM/DL (6.4-8.2)
[2018-12-26] MEDS ORDERED: ONDA4TAB11 PO (14:36)
[2018-12-26 14:54] VITALS: BP 144/89
== END 2018-12-26 14:54 | disposition home or self-care (01) ==
LOC: EDUNIT# 11:54 → ER 11:55
DX: R51 Headache (principal); M54.2 Cervicalgia; J06.9 Acute upper respiratory infection, unspecified; J45.909 Unspecified asthma, uncomplicated; K58.9 Irritable bowel syndrome, unspecified; F41.9 Anxiety disorder, unspecified; Z79.51 Long term (current) use of inhaled steroids; Z87.01 Personal history of pneumonia (recurrent); Z79.52 Long term (current) use of systemic steroids
CPT/HCPCS: 36415; 80053; 85025

== ENCOUNTER 2018-12-28 11:46 | Emergency (ER) | payer BC ==
[~2018-12-28] VITALS: Ht 165.1 cm; Wt 90.7 kg
[~2018-12-28 11:46] MED LIST changes: +ONDA4TAB11 PO
[2018-12-28] MEDS ORDERED: diphenhydrAMINE 50 MG/ML INJ (BENADRYL) IVP ONE (13:00)
[2018-12-28] MEDS ORDERED: PROCHLORPERAZINE 10 MG/2ML INJ (COMPAZINE) IV ONE (13:00)
[2018-12-28] MEDS ORDERED: KETOROLAC 30 MG/ML VIAL IVP ONE (13:00)
[2018-12-28] MEDS ORDERED: NS IV 1000 ML 1,000 ML IV SCH (13:00)
[2018-12-28 13:24] LABS: BASOPHILS % (AUTO) 0 % (0-10); EOSINOPHILS # (AUTO) 0.1 10^3/uL (0.0-0.3); EOSINOPHILS % (AUTO) 1 % (0-10); HEMATOCRIT 44 % (35-52); HEMOGLOBIN 15.2 G/DL (11.5-16.0); LYMPHOCYTES # (AUTO) 2.2 X 10^3 (1.0-4.0); LYMPHOCYTES % (AUTO) 26 % (12-44); MEAN CORPUSCULAR HEMOGLOBIN 31 PG (25-34); MEAN CORPUSCULAR HGB CONC 35 G/DL (32-36); MEAN CORPUSCULAR VOLUME 89 FL (80-99); MEAN PLATELET VOLUME 9.2 FL (7.4-10.4); MONOCYTES # (AUTO) 0.6 X 10^3 (0.0-1.0); MONOCYTES % (AUTO) 8 % (0-12); NEUTROPHILS # (AUTO) 5.4 X 10^3 (1.8-7.8); NEUTROPHILS % (AUTO) 65 % (42-75); PLATELET COUNT 384 10^3/uL (130-400); RED CELL DISTRIBUTION WIDTH 12.9 % (10.0-14.5); WHITE BLOOD COUNT 8.3 10^3/uL (4.3-11.0)
[2018-12-28 13:41] LABS: ALANINE AMINOTRANSFERASE 35 U/L (0-55); ALBUMIN 4.1 GM/DL (3.2-4.5); ALKALINE PHOSPHATASE 56 U/L (40-136); BILIRUBIN,TOTAL 0.8 MG/DL (0.1-1.0); BUN/CREATININE RATIO 11; CALCIUM 9.3 MG/DL (8.5-10.1); CARBON DIOXIDE 21 MMOL/L (21-32); CHLORIDE 108 MMOL/L (98-107); CREATININE SERUM 0.75 MG/DL (0.60-1.30); GFR ESTIMATED > 60; GLUCOSE 88 MG/DL (70-105); POTASSIUM 4.1 MMOL/L (3.6-5.0); SODIUM 139 MMOL/L (135-145); TOTAL PROTEIN 7.3 GM/DL (6.4-8.2)
--- NOTE | 2018-12-28 13:41 | ED Neurological Problem ---
General Chief Complaint: Neurological Problems Stated Complaint: SEVER HEAD AND NECK PAIN LOSS OF VISION Nursing Triage Note: AMB TO ED WITH MOTHER WHO REPORTS THAT DAUGHTER HAS HAD HEADACHE FOR 1 MONTH WITH BLURRY VISION. WAS SEEN IN ED ON THURSDAY GIVEN MEDS FOR HEADACHE. PATIENT REPORTS THEY DID NOT HELP. Nursing Sepsis Screen: No Definite Risk Source: patient, family Exam Limitations: no limitations (CIRO MACDONALD MD) History of Present Illness Date Seen by Provider: Dec 28, 2018 Time Seen by Provider: 12:48 Initial Comments Here with report of headache that it's been going on for about a month but worse over the last week. Was seen 2 days ago for the same and had workup. She got a little better that day with migraine type treatment with Toradol and Compazine and Benadryl. Worse today and had follow-up with her doctor. She called they recommended that she come here for evaluation for meningitis. Workup 2 days ago did not reveal meningitis but apparently she has had an intermittent fever. She has some mild nausea due to the headache and intermittent diarrhea. She states that she's not eating or drinking well she hasn't felt good for the last week. Patient and family deny mental status changes. She is not getting better with Excedrin headache medicine. Timing/Duration: 1 week, increasing Severity: moderate Associated Symptoms: No confusion; fever/chills; No seizures; vision changes ( blurry vision getting worse over the last month); No weakness (CIRO MACDONALD MD) Allergies and Home Medications Allergies Coded Allergies: No Known Drug Allergies (Unverified , 11/15/12) Patient Home Medication List Home Medication List Reviewed: Yes (CIRO MACDONALD MD) Review of Systems Review of Systems Constitutional: see HPI; No chills, No fever Eyes: See HPI, Blurred Vision, Photophobia Ears, Nose, Mouth, Throat: no symptoms reported Respiratory: no symptoms reported Cardiovascular: No chest pain, No edema Gastrointestinal: No abdominal pain; diarrhea, nausea, vomiting Genitourinary: no symptoms reported Musculoskeletal: muscle pain, neck pain Skin: no symptoms reported (CIRO MACDONALD MD) All Other Systems Reviewed Negative Unless Noted: Yes (CIRO MACDONALD MD) Past Jvqtbmw-Ysbnpi-Vomksw Hx Past Med/Social Hx: Reviewed Nursing Past Med/Soc Hx (CIRO MACDONALD MD) Patient Social History Alcohol Use: Denies Use Recreational Drug Use: No Smoking Status: Never a Smoker Recent Foreign Travel: No Contact w/Someone Who Travel: No Recent Infectious Disease Expo: No Recent Hopitalizations: No (CIRO MACDONALD MD) Immunizations Up To Date Tetanus Booster (TDap): Unknown PED Vaccines UTD: Yes (CIRO MACDONALD MD) Seasonal Allergies Seasonal Allergies: Yes (CIRO MACDONALD MD) Past Medical History Surgeries: Yes Orthopedic Respiratory: Yes Asthma Cardiac: No Neurological: No Reproductive Disorders: No Genitourinary: No Gastrointestinal: No Irritable Bowel Musculoskeletal: No Endocrine: No HEENT: No Cancer: No Psychosocial: No Anxiety Integumentary: No Blood Disorders: No Adverse Reaction/Blood Tranf: No (CIRO MACDONALD MD) Family Medical History Reviewed Nursing Family Hx (CIRO MACDONALD MD) Physical Exam Vital Signs Vital Signs - First Documented 12/28/18 12:10 Temp 98.2 Pulse 77 Resp 18 B/P (MAP) 142/77 (98) Pulse Ox 100 O2 Delivery Room Air (MEMO CORTEZ) Vital Signs Capillary Refill : Less Than 3 Seconds (CIRO MACDONALD MD) Height, Weight, BMI Height: 5'5.00" Weight: 200lbs. 0.0oz. 90.253452mr; 48.1 BMI Method:Stated General Appearance: WD/WN, no apparent distress HEENT: PERRL/EOMI, other (question bilateral papillary edema) Neck: full range of motion, supple Respiratory: lungs clear, normal breath sounds Cardiovascular: regular rate, rhythm, no murmur Gastrointestinal: non tender, soft Extremities: non-tender, normal inspection Neurologic/Psychiatric: alert, normal mood/affect, oriented x 3 Crainal Nerves: normal hearing, normal speech, PERRL Motor/Sensory: no motor deficit, no sensory deficit Skin: normal color, warm/dry (CIRO MACDONALD MD) Procedures/Interventions Discussed Risk,Benefits: Yes Patient Consents: Yes Position: Lying, L3-4 Sterile Technique: Yes Opening Pressure: greater than 55 Fluid Color: clear Size of Disposal Tray Used: Adult difficult procedure due to body habitus. (CIRO MACDONALD MD) Progress/Results/Core Measures Results/Orders Lab Results Laboratory Tests Test 12/28/18 13:15 Range/Units White Blood Count 8.3 4.3-11.0 10^3/uL Red Blood Count 4.94 4.35-5.85 10^6/uL Hemoglobin 15.2 11.5-16.0 G/DL Hematocrit 44 35-52 % Mean Corpuscular Volume 89 80-99 FL Mean Corpuscular Hemoglobin 31 25-34 PG Mean Corpuscular Hemoglobin Concent 35 32-36 G/DL Red Cell Distribution Width 12.9 10.0-14.5 % Platelet Count 384 130-400 10^3/uL Mean Platelet Volume 9.2 7.4-10.4 FL Neutrophils (%) (Auto) 65 42-75 % Lymphocytes (%) (Auto) 26 12-44 % Monocytes (%) (Auto) 8 0-12 % Eosinophils (%) (Auto) 1 0-10 % Basophils (%) (Auto) 0 0-10 % Neutrophils # (Auto) 5.4 1.8-7.8 X 10^3 Lymphocytes # (Auto) 2.2 1.0-4.0 X 10^3 Monocytes # (Auto) 0.6 0.0-1.0 X 10^3 Eosinophils # (Auto) 0.1 0.0-0.3 10^3/uL Basophils # (Auto) 0.0 0.0-0.1 10^3/uL Sodium Level 139 135-145 MMOL/L Potassium Level 4.1 3.6-5.0 MMOL/L Chloride Level 108 H 98-107 MMOL/L Carbon Dioxide Level 21 21-32 MMOL/L Anion Gap 10 5-14 MMOL/L Blood Urea Nitrogen 8 7-18 MG/DL Creatinine 0.75 0.60-1.30 MG/DL Estimat Glomerular Filtration Rate > 60 BUN/Creatinine Ratio 11 Glucose Level 88 70-105 MG/DL Calcium Level 9.3 8.5-10.1 MG/DL Corrected Calcium 9.2 8.5-10.1 MG/DL Total Bilirubin 0.8 0.1-1.0 MG/DL Aspartate Amino Transf (AST/SGOT) 23 5-34 U/L Alanine Aminotransferase (ALT/SGPT) 35 0-55 U/L Alkaline Phosphatase 56 40-136 U/L C-Reactive Protein High Sensitivity 0.07 0.00-0.50 MG/DL Total Protein 7.3 6.4-8.2 GM/DL Albumin 4.1 3.2-4.5 GM/DL (MEMO CORTEZ STUDENT) Medications Given in ED Current Medications Medications Dose Ordered Sig/Mart Route Start Time Stop Time Status Last Admin Dose Admin Diphenhydramine HCl 25 mg ONCE ONCE IVP 12/28/18 13:00 12/28/18 13:01 DC 12/28/18 13:09 25 MG Ketorolac Tromethamine 30 mg ONCE ONCE IVP 12/28/18 13:00 12/28/18 13:01 DC 12/28/18 13:13 30 MG Prochlorperazine Edisylate 10 mg ONCE ONCE IV 12/28/18 13:00 12/28/18 13:01 DC 12/28/18 13:10 10 MG (MEMO CORTEZ STUDENT) Vital Signs/I&O 12/28/18 12:10 Temp 98.2 Pulse 77 Resp 18 B/P (MAP) 142/77 (98) Pulse Ox 100 O2 Delivery Room Air (MEMO CORTEZ STUDENT) Blood Pressure Mean: 98 Progress Progress Note : Progress Note Seen and evaluated. IV, labs, CT head ordered. Normal saline 1 L bolus. Monitor patient. Fentanyl 50 g IV. I discussed with the patient that she may need lumbar puncture not so much for meningitis but for concerns of pseudotumor cerebri. This was discussed at length including risk benefits and patient elected to have procedure done. 1630: Lumbar puncture complete. This was a difficult procedure due to body habitus but I was able to get good fluid in the side-lying position right side down. Patient did have elevated pressure and exceeded the top of the tube at greater than 55 cm. Fluid was clear. Sent for typical CSF studies as well as cytology and MS workup. Given patient's findings , pseudotumor cerebri is likely cause of headache. She did have immediate relief of headache after fluid removal. I discussed the case with Dr. Mclaughlin. She will follow her up on and have her set up for outpatient I evaluation with the [facility]. This is a line 500 mg by mouth initiated and will continue twice a day. Dr. Mclaughlin we will manage Acetasol might and follow-up on results. 1710: Gram stain negative and wbc's 1. Patient doing better. Discharged home with return precautions. Patient verbalize understanding instructions and agreement with plan. (CIRO MACDONALD MD) Diagnostic Imaging Diagonstic Imaging: CT Plain Films/CT/US/NM/MRI: c-spine, head Comments NAME: BREANNE REES [facility] REC#: [id number] PT STATUS: REG ER : 1990 PHYSICIAN: TALYA BOWENS ADMIT DATE: 12/28/18/ER Signed Date of Exam: 12/28/18 CT HEAD/CERVICAL SPINE WO PROCEDURE: CT head and CT cervical spine without contrast. TECHNIQUE: Multiple contiguous axial images were obtained through the brain and cervical spine without the use of intravenous contrast. Sagittal and coronal reformations through the cervical spine were then performed. INDICATION: Head and neck pain. COMPARISON: 11/15/2012. FINDINGS: HEAD: The ventricles and sulci are within normal limits. There is no hydrocephalus or cerebral edema. There is no midline shift or mass effect. There is no intracranial mass, hemorrhage, or extra-axial fluid collection. There are air/fluid levels in the maxillary sinuses bilaterally. The remaining sinuses are clear. The mastoid air cells are clear. No fractures are identified. CERVICAL SPINE: The alignment is normal. There is no fracture or traumatic subluxation. The prevertebral soft tissues are within normal limits. The odontoid is intact and the lateral masses are well aligned. There are no soft tissue abnormalities. IMPRESSION: 1. No acute intracranial process. 2. No focal abnormality in the cervical spine. 3. Air/fluid levels in the maxillary sinuses bilaterally. Dictated by: Dictated on workstation # [id number] Dict: 12/28/18 1355 Trans: 12/28/18 1402 Interpreted by: DIEGO SMITH MD Electronically signed by: DIEGO SMITH MD 12/28/18 1402 (CIRO MACDONALD MD) Departure Impression Primary Impression: Pseudotumor cerebri syndrome Additional Impression: Headache Qualified Codes: R51 - Headache Disposition: 01 HOME, SELF-CARE Condition: Stable Departure-Patient Inst. Decision time for Depature: 17:17 (CIRO MACDONALD MD) Referrals: CARLENE MCLAUGHLIN DO (PCP/Family) Primary Care Physician Patient Instructions: Idiopathic Intracranial Hypertension (DC), Headache, Adult (DC) Add. Discharge Instructions: All discharge instructions reviewed with patient and/or family. Voiced understanding. You may continue Tylenol or Excedrin per package directions. Follow up with Dr. Mclaughlin on . Call in the morning for appointment time. Please keep that appointment. Follow-up with Dr. Chong or his clinic per her direction. Take medications as directed. Return for worse pain, fever, vomiting, weakness, breathing problems, vision problems, balance or weakness problems or other concerns as needed. Scripts Acetazolamide (Acetazolamide) 250 Mg Tablet 500 MG PO BID, #60 TAB 0 Refills Prov: CIRO MACDONALD MD 12/28/18 Copy Copies To 1: CARLENE MCLAUGHLIN DO Copies To 2: KP CHONG OD, TIMOTHY D MD Dec 28, 2018 13:41 MEMO CORTEZ STUDENT Dec 28, 2018 17:04
--- NOTE | 2018-12-28 14:01 | Diagnostic Imaging Report ---
PROCEDURE: CT head and CT cervical spine without contrast. TECHNIQUE: Multiple contiguous axial images were obtained through the brain and cervical spine without the use of intravenous contrast. Sagittal and coronal reformations through the cervical spine were then performed. INDICATION: Head and neck pain. COMPARISON: 11/15/2012. FINDINGS: HEAD: The ventricles and sulci are within normal limits. There is no hydrocephalus or cerebral edema. There is no midline shift or mass effect. There is no intracranial mass, hemorrhage, or extra-axial fluid collection. There are air/fluid levels in the maxillary sinuses bilaterally. The remaining sinuses are clear. The mastoid air cells are clear. No fractures are identified. CERVICAL SPINE: The alignment is normal. There is no fracture or traumatic subluxation. The prevertebral soft tissues are within normal limits. The odontoid is intact and the lateral masses are well aligned. There are no soft tissue abnormalities. IMPRESSION: 1. No acute intracranial process. 2. No focal abnormality in the cervical spine. 3. Air/fluid levels in the maxillary sinuses bilaterally. Dictated by: Dictated on workstation # [id number]
[2018-12-28] MEDS ORDERED: fentaNYL INJECTION 100 MCG/2 ML AMP IVP ONE (14:45)
[2018-12-28 14:56] LABS: BILIRUBIN,URINE NEGATIVE (NEGATIVE); CLARITY,URINE SLIGHTLY CLOUDY; COLOR,URINE YELLOW; GLUCOSE, URINE (UA) NEGATIVE (NEGATIVE); KETONES,URINE 3+ (NEGATIVE); LEUKOCYTE ESTERASE ,URINE NEGATIVE (NEGATIVE); NITRITE,URINE NEGATIVE (NEGATIVE); PH,URINE 6 (5-9); PROTEIN,URINE 1+ (NEGATIVE); UROBILINOGEN,URINE NORMAL (NORMAL)
[2018-12-28 15:12] LABS: BACTERIA,URINE FEW /HPF; WBC,URINE 0-2 /HPF
--- NOTE | 2018-12-28 15:33 | NUR ---
CONSENT FOR LUMBAR PUMCTURE
[2018-12-28] MEDS ORDERED: LIDOCAINE/EPI 2% 1:100,00 (XYLOCAINE) 20 ML VIAL ONE (15:51)
--- NOTE | 2018-12-28 15:54 | NUR ---
DR MACDONALD TO ROOM TO DO LUMBAR PUNCTURE
[2018-12-28] MEDS ORDERED: fentaNYL INJECTION 100 MCG/2 ML AMP IVP STA (15:56)
[2018-12-28] MEDS ORDERED: LIDOCAINE/EPI 2% 1:200,00 (XYLOCAINE) 10 ML VIAL INJ ONE (16:00)
[2018-12-28] MEDS ORDERED: NS IV 1000 ML 1,000 ML IV ONE (16:01)
--- NOTE | 2018-12-28 16:36 | NUR ---
SPINAL FLUID TO LAB
[2018-12-28 17:00] LABS: APPEARANCE,CSF CLEAR; COLOR,CSF COLORLESS
[2018-12-28] MEDS ORDERED: acetaZOLAMIDE 250 MG (DIAMOX) TAB PO STA (17:00)
[2018-12-28 17:02] LABS: CSF TUBE NUMBER 4; RED BLOOD CELL,CSF 23 CELLS (0-0); WHITE BLOOD CELL,CSF 1 CELLS (0-5)
[2018-12-28 17:03] LABS: CSF GLUCOSE 53 MG/DL (50-80); CSF TOTAL PROTEIN 18 MG/DL (15-40)
[2018-12-28] MEDS ORDERED: ACET250T3 PO (17:20)
[2018-12-28 17:28] VITALS: BP 151/86
== END 2018-12-28 17:38 | disposition home or self-care (01) ==
LOC: EDUNIT# 11:46 → ER 11:49
DX: G93.2 Benign intracranial hypertension (principal); R51 Headache; J45.909 Unspecified asthma, uncomplicated; K58.9 Irritable bowel syndrome, unspecified; F41.9 Anxiety disorder, unspecified
CPT/HCPCS: 36415; 62270; 70450; 72125; 80053; 81000; 82040; 82042; 82784; 82945; 83873; 83916; 84157; 85025; 86141; 87070; 87205; 87252; 89051

== ENCOUNTER → 2019-01-21 | Outpatient (CLI) | payer BC ==
[~2019-01-21] MED LIST changes: +ACET250T3 PO; +GADOBUTROL 15 MMOL/15 ML (GADAVIST) VIAL IV ONE
--- NOTE | 2019-01-21 16:51 | Diagnostic Imaging Report ---
PROCEDURE: MR imaging of the brain with and without contrast. TECHNIQUE: Multiplanar, multisequence MR imaging of the brain was performed with and without contrast. INDICATION: Benign intracranial hypertension. COMPARISON: CT head without contrast 12/28/2018. FINDINGS: No abnormal intracranial signal or enhancement. No restricted water diffusion or hemosiderin deposition. Normal morphology including the major midline structures, sella, posterior fossa and cerebellar pontine angle. The orbits are negative on this nondedicated exam. Normal intracranial flow voids. No hydrocephalus or extra-axial fluid collections. The paranasal sinuses and mastoids are clear. Normal bone marrow signal. IMPRESSION: Normal MRI of the brain without and with IV contrast. Dictated by: Dictated on workstation # [id number]
== END ==
LOC: RAD 15:17
PROVIDERS: ATTEND Internal Medicine
DX: G93.2 Benign intracranial hypertension (principal); R51 Headache
CPT/HCPCS: 70553

== ENCOUNTER 2019-10-14 13:34 | Observation (INO) | payer BC ==
[~2019-10-14] VITALS: Ht 165.1 cm; Wt 134.2 kg
[~2019-10-14 13:34] MED LIST changes: -GADOBUTROL 15 MMOL/15 ML (GADAVIST) VIAL IV ONE
[2019-10-14] MEDS ORDERED: DOCUSATE SODIUM 100 MG (COLACE) CAP PO PRN (13:45)
[2019-10-14] MEDS ORDERED: LEVOFLOXACIN 750 MG/150 ML IV 150 ML IV SCH (13:45)
[2019-10-14] MEDS ORDERED: CALCIUM CARBONATE 500 MG (TUMS) TAB.CHEW PO PRN (13:45)
[2019-10-14] MEDS ORDERED: HYDROcodone/APAP 5 MG/325 MG (LORTAB) TAB PO PRN (13:45)
[2019-10-14] MEDS ORDERED: NS IV 1000 ML 2,721.54 ML IV ONE (13:45)
[2019-10-14] MEDS ORDERED: LOPERAMIDE 2 MG (IMODIUM) TABLET PO PRN (13:45)
[2019-10-14] MEDS ORDERED: guaiFENesin/CODEINE (ROBITUSSIN AC) 10ML UDC PO PRN ×2 (13:45→16:00)
[2019-10-14] MEDS ORDERED: diphenhydrAMINE 25 MG TAB (BENADRYL) PO PRN (13:45)
[2019-10-14] MEDS ORDERED: ALPRAZolam 0.25 MG (XANAX) TAB PO PRN (13:45)
[2019-10-14] MEDS ORDERED: ACETAMINOPHEN 500 MG TAB (TYLENOL) PO PRN (13:45)
[2019-10-14] MEDS ORDERED: MELATONIN 3 MG TABLET PO PRN (13:45)
[2019-10-14] MEDS ORDERED: ONDANSETRON 4 MG (ZOFRAN) ORAL DISSOLVE TAB PO PRN (13:45)
[2019-10-14] MEDS ORDERED: ONDANSETRON 4 MG/2 ML (SDV) Z0FRAN IVP PRN (13:45)
[2019-10-14 14:11] VITALS: BP 134/93
[2019-10-14] MEDS ORDERED: LEVO1TAB79 PO (14:53)
[2019-10-14] MEDS ORDERED: ACET500C40 PO (14:53)
[2019-10-14] MEDS ORDERED: FLUT1DIS26 INH (14:53)
[2019-10-14] MEDS ORDERED: DULO60CA59 PO (14:53)
[2019-10-14] MEDS ORDERED: ALBU2.5V4 NEB (14:53)
[2019-10-14] MEDS ORDERED: RT-ALBUINH INH (14:53)
--- NOTE | 2019-10-14 15:00 | Diagnostic Imaging Report ---
INDICATION: Congestion, chest heaviness. TECHNIQUE: Single view chest 2:42 PM. CORRELATION STUDY: 10/01/2018 FINDINGS: The heart size, mediastinal configuration and pulmonary vascularity are within normal limits. The lungs are clear with no consolidating infiltrate. There is no significant effusion or pneumothorax. IMPRESSION: 1. Negative for acute abnormality of the chest. Dictated by: Dictated on workstation # [id number]
[2019-10-14] MEDS ORDERED: ESOM20CA58 PO (15:15)
[2019-10-14] MEDS ORDERED: CETI10TA20 PO (15:15)
[2019-10-14] MEDS ORDERED: GUAI-813 PO (15:15)
--- NOTE | 2019-10-14 15:16 | NUR ---
WENT OVER THE EXT MED HX WITH THE PATIENT AND SHE VERIFIED HOW SHE TAKES EACH MEDICATION. SHE STATES SHE IS NO LONGER TAKING HER CONTROL. SHE TAKES ZYRTEC AND NEXIUM OTC AT BEDTIME.
[2019-10-14 15:29] VITALS: BP 134/93
[2019-10-14 15:33] LABS: INR 0.9 (0.8-1.4); PROTHROMBIN TIME PATIENT 12.8 SEC (12.2-14.7)
[2019-10-14 15:36] LABS: BASOPHILS % (AUTO) 1 % (0-10); EOSINOPHILS # (AUTO) 0.2 10^3/uL (0.0-0.3); EOSINOPHILS % (AUTO) 3 % (0-10); HEMATOCRIT 40 % (35-52); HEMOGLOBIN 12.7 G/DL (11.5-16.0); LYMPHOCYTES # (AUTO) 2.8 X 10^3 (1.0-4.0); LYMPHOCYTES % (AUTO) 32 % (12-44); MEAN CORPUSCULAR HEMOGLOBIN 30 PG (25-34); MEAN CORPUSCULAR HGB CONC 32 G/DL (32-36); MEAN CORPUSCULAR VOLUME 94 FL (80-99); MEAN PLATELET VOLUME 9.9 FL (7.4-10.4); MONOCYTES # (AUTO) 0.7 X 10^3 (0.0-1.0); MONOCYTES % (AUTO) 8 % (0-12); NEUTROPHILS % (AUTO) 57 % (42-75); PLATELET COUNT 316 10^3/uL (130-400); RED CELL DISTRIBUTION WIDTH 13.4 % (10.0-14.5); WHITE BLOOD COUNT 8.8 10^3/uL (4.3-11.0)
[2019-10-14 15:41] LABS: ALANINE AMINOTRANSFERASE 10 U/L (0-55); ALBUMIN 3.8 GM/DL (3.2-4.5); ALKALINE PHOSPHATASE 66 U/L (40-136); BILIRUBIN,TOTAL 0.3 MG/DL (0.1-1.0); BUN/CREATININE RATIO 9; CALCIUM 8.3 MG/DL (8.5-10.1); CARBON DIOXIDE 18 MMOL/L (21-32); CHLORIDE 116 MMOL/L (98-107); CREATININE SERUM 0.75 MG/DL (0.60-1.30); GFR ESTIMATED > 60; GLUCOSE 87 MG/DL (70-105); POTASSIUM 3.7 MMOL/L (3.6-5.0); SODIUM 140 MMOL/L (135-145); TOTAL PROTEIN 6.6 GM/DL (6.4-8.2)
--- NOTE | 2019-10-14 15:55 | Progress Note ---
Progress Note SUBJECTIVE: Arianna Yang is a 29 y.o. female here for evaluation of cough She complains of persistent cough and headaches which worries her due to history of pseudotumor cerebri. The cough is productive and the headache pain is primarily in her sinuses. She had a similar presentation around this time last year. At that time we treated her with steroids, nebulizer treatments, and antibiotics. I also recommended that she get a sleep study which she never ended up doing. She has a history of requiring admission for symptoms like this due to failing other therapies. Her last pulmonary function test was a long time ago. I recommended to her that we admit her to give IV steroids, get PFTs, and I will put in orders for a sleep study with Dr. Maharaj that she can do outpatient. 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 She also has a wedding tomorrow but does not feel like going due to current symptoms. She requests that we do not give fluids at the hospital. Scribed by: Melody Alamo, MS-III CARLENE MCLAUGHLIN DO Oct 14, 2019 15:55 POS
[2019-10-14 16:52] VITALS: BP 119/61
[2019-10-14] MEDS: methylPREDNISolone 40 MG/ML (Solu-MEDROL) VIAL IV SCH ×2 (18:14→21:09)
[2019-10-14 19:28] VITALS: BP 117/81
[2019-10-14] MEDS ORDERED: RT-ADVAIR HFA 115/21 MCG PER PUFF IH SCH (20:00)
[2019-10-14] MEDS ORDERED: LORATADINE (CLARITIN) 10 MG TAB PO SCH (21:00)
[2019-10-14] MEDS ORDERED: acetaZOLAMIDE ER 500 MG CAP (DIAMOX SEQUELS) PO SCH (21:00)
[2019-10-14] MEDS ORDERED: PANTOPRAZOLE 40 MG (PROTONIX) TAB PO SCH (21:00)
[2019-10-14] MEDS ORDERED: NON-FORMULARY MEDICATION 1 EA EA (Fluticasone/Salmeterol (Advair 250-50 Diskus) 1 PUFF) INH SCH (21:00)
[2019-10-14] MEDS ORDERED: NON-FORMULARY MEDICATION 1 EA EA (Esomeprazole Magnesium (Nexium 24Hr) 20 MG) PO SCH (21:00)
[2019-10-14] MEDS ORDERED: DULoxetine 30 MG (CYMBALTA) CAP PO SCH (21:00)
[2019-10-14] MEDS ORDERED: NON-FORMULARY MEDICATION 1 EA EA (Duloxetine HCl 60 MG) PO SCH (21:00)
[2019-10-14] MEDS ORDERED: NON-FORMULARY MEDICATION 1 EA EA (Cetirizine HCl (Zyrtec) 10 MG) PO SCH (21:00)
[2019-10-14] MEDS: SENNA W/DOCUSATE (SENOKOT S) TABLET PO SCH (21:09)
[2019-10-14] MEDS: BENZONATATE 100 MG (TESSALON) CAPSULE PO SCH (21:09)
[2019-10-14] MEDS: ENOXAPARIN 40 MG/0.4 ML (LOVENOX) SYR SC SCH (21:10)
[2019-10-14 23:07] VITALS: BP 130/71
[2019-10-15] MEDS: methylPREDNISolone 40 MG/ML (Solu-MEDROL) VIAL IV SCH ×3 (03:46→14:59)
[2019-10-15 03:56] VITALS: BP 119/61
[2019-10-15 04:46] LABS: BASOPHILS % (AUTO) 0 % (0-10); EOSINOPHILS % (AUTO) 0 % (0-10); HEMATOCRIT 42 % (35-52); HEMOGLOBIN 13.5 G/DL (11.5-16.0); LYMPHOCYTES # (AUTO) 0.9 X 10^3 (1.0-4.0); LYMPHOCYTES % (AUTO) 19 % (12-44); MEAN CORPUSCULAR HEMOGLOBIN 30 PG (25-34); MEAN CORPUSCULAR HGB CONC 32 G/DL (32-36); MEAN CORPUSCULAR VOLUME 93 FL (80-99); MEAN PLATELET VOLUME 9.7 FL (7.4-10.4); MONOCYTES # (AUTO) 0.1 X 10^3 (0.0-1.0); MONOCYTES % (AUTO) 2 % (0-12); NEUTROPHILS # (AUTO) 3.5 X 10^3 (1.8-7.8); NEUTROPHILS % (AUTO) 79 % (42-75); PLATELET COUNT 314 10^3/uL (130-400); RED CELL DISTRIBUTION WIDTH 13.3 % (10.0-14.5); WHITE BLOOD COUNT 4.5 10^3/uL (4.3-11.0)
[2019-10-15 05:12] LABS: ALANINE AMINOTRANSFERASE 14 U/L (0-55); ALKALINE PHOSPHATASE 68 U/L (40-136); BILIRUBIN,TOTAL 0.4 MG/DL (0.1-1.0); BUN/CREATININE RATIO 14; CARBON DIOXIDE 15 MMOL/L (21-32); CHLORIDE 116 MMOL/L (98-107); GFR ESTIMATED > 60; GLUCOSE 190 MG/DL (70-105); POTASSIUM 3.7 MMOL/L (3.6-5.0); SODIUM 139 MMOL/L (135-145); TOTAL PROTEIN 7.1 GM/DL (6.4-8.2)
[2019-10-15] MEDS: ENOXAPARIN 40 MG/0.4 ML (LOVENOX) SYR SC SCH (05:51)
[2019-10-15 08:00] VITALS: BP 131/74
[2019-10-15] MEDS: RT-ALBUTEROL SULF 2.5 MG/3 ML PRE-MIX VIAL INH SCH ×2 (08:10→10:46)
[2019-10-15] MEDS: SENNA W/DOCUSATE (SENOKOT S) TABLET PO SCH (08:40)
[2019-10-15] MEDS: BENZONATATE 100 MG (TESSALON) CAPSULE PO SCH ×2 (08:41→12:13)
[2019-10-15] MEDS ORDERED: acetaZOLAMIDE ER 500 MG CAP (DIAMOX SEQUELS) PO SCH (09:00)
[2019-10-15 12:00] VITALS: BP 130/76
--- NOTE | 2019-10-15 12:38 | History & Physical ---
History of Present Illness HPI/Chief Complaint CC: Arianna Yang is a 29 y.o. female here for evaluation of cough She complains of persistent cough and headaches which worries her due to history of pseudotumor cerebri. The cough is productive and the headache pain is primarily in her sinuses. She had a similar presentation around this time last year. At that time we treated her with steroids, nebulizer treatments, and antibiotics. I also recommended that she get a sleep study which she never ended up doing. She has a history of requiring admission for symptoms like this due to failing other therapies. Her last pulmonary function test was a long time ago. I recommended to her that we admit her to give IV steroids, get PFTs, and I will put in orders for a sleep study with Dr. Maharaj that she can do outpatient. 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 She also has a wedding tomorrow but does not feel like going due to current symptoms. She requests that we do not give fluids at the hospital. Scribed by: Melody Alamo, MS-III Patient is feeling better. Cough is improved. Wheezing noted but is responding to IV steroids. Agrees for PFT's and Sleep study 11/21. Source: patient, RN/MD, old records Exam Limitations: no limitations Date Seen 10/15/19 Time Seen by a Provider: 11:30 Attending Physician Darcie Mclaughlin DO PCP Darcie Mclaughlin DO Referring Physician Date of Admission Oct 14, 2019 at 14:08 Home Medications & Allergies Home Medications Reviewed patient Home Medication Reconciliation performed by pharmacy medication reconciliations renewable energy technician and/or nursing. Patients Allergies have been reviewed. 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) Alcohol Use: Occasionally Uses Number of Drinks Today: 0 Recreational Drug Use: No Smoking Status: Never a Smoker Physical Abuse Screen: No Sexual Abuse: No Recent Foreign Travel: No Contact w/other who traveled: No Recent Hopitalizations: No Recent Infectious Disease Expo: No Immunizations Up To Date Tetanus Booster (TDap): Unknown Pediatric: Yes Date of Influenza Vaccine: Jul 15, 2019 Seasonal Allergies Seasonal Allergies: Yes Past Medical History Surgeries: Orthopedic Respiratory: Asthma, Pneumonia Currently Using CPAP: No Pseudotumor cerebri Reproductive: No Gastrointestinal: Irritable Bowel Psychosocial: Anxiety, Depression History of Blood Disorders: No Adverse Reaction to Blood Ugalde: No Review of Systems Constitutional: see HPI Respiratory: cough, wheezing Physical Exam Physical Exam Vital Signs Vital Signs - First Documented 10/14/19 10/14/19 14:08 14:11 Temp 36.1 Pulse 104 Resp 20 B/P (MAP) 134/93 (107) Pulse Ox 96 O2 Delivery Room Air Capillary Refill : Less Than 3 Seconds Height, Weight, BMI Height: 5'5.00" Weight: 200lbs. 0.0oz. 90.141998nv; 49.23 BMI Method:Stated General Appearance: No Apparent Distress, WD/WN, Obese Eyes: Bilateral Eye Normal Inspection, Bilateral Eye PERRL HEENT: PERRL/EOMI, Normal ENT Inspection, Pharynx Normal Neck: Full Range of Motion, Normal Inspection, Non Tender, Supple, Carotid Bruit Respiratory: Chest Non Tender, No Accessory Muscle Use, No Respiratory Distress, Crackles, Wheezing Cardiovascular: Regular Rate, Rhythm, No Edema, No Gallop, No JVD, No Murmur, Normal Peripheral Pulses Gastrointestinal: Normal Bowel Sounds, No Organomegaly, No Pulsatile Mass, Non Tender, Soft Back: Normal Inspection, No CVA Tenderness, No Vertebral Tenderness Extremity: Normal Capillary Refill, Normal Inspection, Normal Range of Motion, Non Tender, No Calf Tenderness, No Pedal Edema Neurologic/Psychiatric: Alert, Oriented x3, No Motor/Sensory Deficits, Normal Mood/Affect Skin: Normal Color, Warm/Dry Lymphatic: No Adenopathy Results Results/Procedures Labs Laboratory Tests 10/14/19 15:00 10/14/19 15:07 10/15/19 04:27 Patient resulted labs reviewed. Assessment/Plan Admission Diagnosis Assessment: Status asthmaticus Asthma compliant with meds Suspect INDIO agrees for sleep study 11/2019 Depression Anxiety sees counselor and on meds Pseudotumor cerebri Obesity Plan: IV steroids last dose then DC FQ for abx since failed Augmentin Admission Status: Observation Diagnosis/Problems Diagnosis/Problems (1) Asthmaticus, status Status: Acute (2) Bronchitis Status: Acute (3) Wheezing (4) Pseudotumor cerebri syndrome Status: Acute Clinical Quality Measures DVT/VTE Risk/Contraindication: Risk Factor Score Per Nursin RFS Level Per Nursing on Admit: 1=Low/No VTE PPX DARCIE MCLAUGHLIN DO Oct 15, 2019 12:37 POS
[2019-10-15] MEDS ORDERED: LEVO750T9 PO (12:40)
[2019-10-15] MEDS ORDERED: MONT10TA21 PO (12:40)
[2019-10-15] MEDS ORDERED: PRED10TA22 PO (12:40)
[2019-10-15 13:31] VITALS: BP 130/76
[2019-10-15] MEDS ORDERED: LEVOFLOXACIN 750 MG TAB (LEVAQUIN) PO ONE (13:45)
== END 2019-10-15 15:40 | disposition home or self-care (01) ==
LOC: 4TH 14:08
PROVIDERS: ADMIT Internal Medicine; ATTEND Internal Medicine
DX: R05 Cough (principal); J18.9 Pneumonia, unspecified organism; K58.9 Irritable bowel syndrome, unspecified; F41.9 Anxiety disorder, unspecified; F32.9 Major depressive disorder, single episode, unspecified; J45.902 Unspecified asthma with status asthmaticus; G93.2 Benign intracranial hypertension
CPT/HCPCS: 36415; 71045; 80053; 83605; 83880; 85025; 85610; 85730; 87040; 94640; 94664; 94760; 99211; G0378